=== PATIENT | male | born 1965 | race Caucasian/White ===

== ENCOUNTER 2016-12-09 09:37 | Emergency (ER) | payer MEDICARE, OTHER ==
[~2016-12-09] VITALS: Ht 175.3 cm; Wt 115.7 kg
[2016-12-09] MEDS ORDERED: DILTIAZEM 24HR240 M1 PO (09:58)
[2016-12-09] MEDS ORDERED: PRADAXA150 MG PO (09:58)
[2016-12-09] MEDS ORDERED: GLUCOPHAGE1000 MG PO (09:59)
[2016-12-09] MEDS ORDERED: LISINOPRIL20 MG PO (09:59)
[2016-12-09] MEDS ORDERED: GLIMEPIRIDE4 MG PO (09:59)
[2016-12-09] MEDS ORDERED: HYDROCHLOROTHIA25 MG PO (09:59)
[2016-12-09] MEDS ORDERED: PREDNISONE20 MG PO (11:59)
[2016-12-09] MEDS ORDERED: OXYCODONE HCL5 MG PO (11:59)
--- NOTE | 2016-12-09 19:36 | EKG ---
[facility] [address] [facility] [place] [address] Signed Normal sinus rhythm Prolonged QT Abnormal ECG No previous ECGs available Confirmed by FELICIANO WALLACE MD ([id number]) on 12/09/2016 7:36:30 PM Electronically Signed By: FELICIANO WALLACE MD 12/09/16 193 PATIENT NAME: RODY VELASQUEZ JR Electrocardiogram DATE OF : 61 PHYSICIAN: FELICIANO WALLACE MD REPORT #: [id number] REPORT IS CONFIDENTIAL AND NOT TO BE RELEASED WITHOUT AUTHORIZATION
== END 2016-12-09 12:12 | disposition home or self-care (01) ==
LOC: ED 09:37
DX: J44.1 Chronic obstructive pulmonary disease with (acute) exacerbation (principal); I10 Essential (primary) hypertension; M54.9 Dorsalgia, unspecified; I48.91 Unspecified atrial fibrillation; I51.9 Heart disease, unspecified; F17.200 Nicotine dependence, unspecified, uncomplicated; Z88.6 Allergy status to analgesic agent; Z88.0 Allergy status to penicillin; Z88.5 Allergy status to narcotic agent; Z79.899 Other long term (current) drug therapy
CPT/HCPCS: 71020; 80053; 84484; 85025; 93005; 93010; 94640; 96374; 99284; J2930